=== PATIENT | female | born 1960 | race Caucasian/White ===

== ENCOUNTER 2017-04-10 20:21 | Emergency (ER) | payer OTHER ==
[2017-04-10] MEDS ORDERED: ACETAMINOPHEN 325 MG TABLET (FP) PO ONE (20:33)
--- NOTE | 2017-04-10 20:34 | PDOC ---
Rapid Medical Evaluation Chief Complaint: Blood Pressure Problem Time Seen by Provider: 04/10/17 20:30 Medical Evaluation: 04/10/17 20:30 I have performed a brief in-person evaluation of this patient. The patient presents with a chief complaint of: High Blood Pressure Pertinent physical exam findings: n/a I have ordered the following: cbc, cmp, urinalysis, ekg, cardiac enzymes. The patient will proceed to the ED for further evaluation. No history of hypertension, presents to ED c/o h/a. (10/28) She states she took her bp at local pharmacy and it was high. Triage: 148/100. PmHx: HLD. Denies CP. 04/10/17 20:33 Discharge Disposition - Referrals Referrals: Dasia Bearden MD [Primary Care Provider] - - Patient Instructions - Post Discharge Activity
[2017-04-10 20:55] VITALS: TEMP 98.2; BMI 21.5
[2017-04-10 21:07] LABS: BASOPHIL 0.4 % (0-2.0); EOSINOPHIL 0.7 % (0-4.5); MCH 28.6 pg (25.7-33.7); MCHC 33.9 g/dl (32.0-36.0); MEAN CELL VOLUME 84.5 fl (80-96); MEAN PLT VOLUME 8.3 fl (7.5-11.1); NEUTROPHILS 45.9 % (42.8-82.8); PLATELET COUNT 313 K/MM3 (134-434); RDW 13.6 % (11.6-15.6); WHITE BLOOD COUNT 7.9 K/mm3 (4.0-10.0)
[2017-04-10 21:09] LABS: URINE APPEARANCE CLEAR; URINE BILIRUBIN NEGATIVE (NEGATIVE); URINE BLOOD NEGATIVE (NEGATIVE); URINE COLOR STRAW; URINE GLUCOSE (UA) NEGATIVE (NEGATIVE); URINE KETONE NEGATIVE (NEGATIVE); URINE NITRITE NEGATIVE (NEGATIVE); URINE PROTEIN NEGATIVE (NEGATIVE); URINE UROBILINOGEN NEGATIVE mg/dL (0.2-1.0)
[2017-04-10 21:20] LABS: INR 0.96 (0.82-1.09); PROTHROMBIN TIME (PATIENT) 10.8 SEC (9.98-11.88)
[2017-04-10 21:23] LABS: ACTIVATED PTT 33.2 SECONDS (26.9-34.4)
[2017-04-10 21:37] LABS: ALBUMIN 4.1 g/dl (3.4-5.0); ANION GAP 6 (8-16); CALCIUM 8.9 mg/dL (8.5-10.1); CO2 32 mmol/L (21-32); CREATININE 0.8 mg/dL (0.55-1.02); GLUCOSE,RANDOM 96 mg/dL (74-106); SGOT/AST 17 U/L (15-37); SGPT/ALT 26 U/L (12-78)
[2017-04-10 21:41] LABS: ALK PHOS 110 U/L (45-117); BILIRUBIN,TOTAL 0.4 mg/dL (0.2-1.0); CPK 148 IU/L (26-192); TOT PROT 7.4 g/dl (6.4-8.2); TROPONIN I < 0.02 ng/ml (0.00-0.05)
[2017-04-10] MEDS ORDERED: ACETAMINOPHEN 325 MG TABLET (FP) ONE (21:43)
[2017-04-10] MEDS ORDERED: METOPROLOL TARTRATE 25 MG TABLET (FP) PO ONE (22:20)
[2017-04-10] MEDS ORDERED: METOPROLOL TARTRATE 25 MG TABLET (FP) ONE (22:21)
--- NOTE | 2017-04-10 22:29 | PDOC ---
History of Present Illness - General History Source: Patient, Old Records Exam Limitations: No Limitations - History of Present Illness Initial Comments: 04/10/17 22:37 The patient is a 56 year old danish speaking female, accompanied by , with a past medical history of hypertension who presents to the emergency department with chest discomfort for 2 weeks. The patient states that she followed up with a doctor for her chest discomfort and was advised to avoid salt and monitor her blood pressure. The patient has no other complaints at this time. <Les Bueno - Last Filed: 04/10/17 22:37> - General History Source: Patient <ArjunPollo - Last Filed: 04/11/17 01:34> - General Chief Complaint: Blood Pressure Problem Stated Complaint: BLOOD PRESSURE PROBLEM Time Seen by Provider: 04/10/17 20:28 Past History <Les Bueno - Last Filed: 04/10/17 22:37> - Past Medical History COPD: No Hypercholesterolemia: Yes - Suicide/Smoking/Psychosocial Hx Smoking History: Never smoked <Pollo Díaz - Last Filed: 04/11/17 01:34> - Past Medical History Allergies/Adverse Reactions: Allergies Allergy/AdvReac Type Severity Reaction Status Date / Time aspirin Allergy Verified 04/10/17 20:33 Home Medications: Ambulatory Orders Simvastatin 75 mg PO HS 04/10/17 Enalapril Maleate [Vasotec -] 5 mg PO BID #10 tablet 04/11/17 Review of Systems - Review of Systems Able to Perform ROS?: Yes Comments:: 04/10/17 22:38 CONSTITUTIONAL: Absent: fever, no chills, no fatigue EYES: Absent: visual changes ENT: Absent: ear pain, no sore throat CARDIOVASCULAR: (+) Chest discomfort Absent: chest pain RESPIRATORY: Absent: cough, no SOB GI: Absent: abdominal pain, no nausea, no vomiting, no constipation, no diarrhea GENITOURINARY: Absent: dysuria, no frequency, no hematuria MUSCULOSKELETAL: Absent: back pain, no arthralgia, no myalgia SKIN: Absent: rash <Les Bueno - Last Filed: 04/10/17 22:37> *Physical Exam - Vital Signs Last Vital Signs Temp Pulse Resp BP Pulse Ox 98.2 F 71 18 138/102 99 04/10/17 20:29 04/10/17 22:22 04/10/17 22:22 04/10/17 22:22 04/10/17 22:22 - Physical Exam Comments: 04/10/17 22:38 GENERAL: Well-appearing, well-nourished. No apparent distress. HEENT: Normocephalic, atraumatic. PERRL, EOM intact. CARDIOVASCULAR: Normal S1, S2. Regular rate and rhythm. PULMONARY: Clear to auscultation bilaterally. ABDOMEN: Soft, non-distended, non-tender. EXTREMITIES: Normal ROM in all four extremities. No gross deformities. SKIN: Warm, dry. No rash NEUROLOGICAL: No focal neurological deficits. <Les Bueno - Last Filed: 04/10/17 22:37> - Vital Signs Last Vital Signs Temp Pulse Resp BP Pulse Ox 98.2 F 71 18 138/102 99 04/10/17 20:29 04/10/17 22:22 04/10/17 22:22 04/10/17 22:22 04/10/17 22:22 <Pollo Díaz - Last Filed: 04/11/17 01:34> ED Treatment Course - LABORATORY CBC & Chemistry Diagram: 04/10/17 20:30 04/10/17 20:30 - ADDITIONAL ORDERS Additional order review: Laboratory Results 04/10/17 04/10/17 04/10/17 20:40 20:30 20:30 PT with INR 10.80 INR 0.96 PTT (Actin FS) 33.2 Sodium 142 Potassium 4.2 Chloride 104 Carbon Dioxide 32 Anion Gap 6 L BUN 13 Creatinine 0.8 Creat Clearance w eGFR > 60 Random Glucose 96 Calcium 8.9 Total Bilirubin 0.4 AST 17 ALT 26 Alkaline Phosphatase 110 Creatine Kinase 148 Troponin I < 0.02 Total Protein 7.4 Albumin 4.1 Urine Color Straw Urine Appearance Clear Urine pH 7.0 Ur Specific [place] 1.006 Urine Protein Negative Urine Glucose (UA) Negative Urine Ketones Negative Urine Blood Negative Urine Nitrite Negative Urine Bilirubin Negative Urine Urobilinogen Negative 04/10/17 20:30 RBC 4.82 MCV 84.5 MCHC 33.9 RDW 13.6 MPV 8.3 Neutrophils % 45.9 Lymphocytes % 47.3 H Monocytes % 5.7 Eosinophils % 0.7 Basophils % 0.4 - Medications Given in the ED: ED Medications Discontinued Medications Generic Name Dose Route Start Last Admin Trade Name Jaswant PRN Reason Stop Dose Admin Acetaminophen 650 mg 04/10/17 20:33 04/10/17 21:48 Tylenol - PO 04/10/17 20:34 650 mg ONCE ONE Administration Metoprolol Tartrate 25 mg 04/10/17 22:20 04/10/17 22:25 Lopressor - PO 04/10/17 22:21 25 mg ONCE ONE Administration <Les Bueno - Last Filed: 04/10/17 22:37> - LABORATORY CBC & Chemistry Diagram: 04/10/17 20:30 04/10/17 20:30 - ADDITIONAL ORDERS Additional order review: Laboratory Results 04/10/17 04/10/17 04/10/17 20:40 20:30 20:30 PT with INR 10.80 INR 0.96 PTT (Actin FS) 33.2 Sodium 142 Potassium 4.2 Chloride 104 Carbon Dioxide 32 Anion Gap 6 L BUN 13 Creatinine 0.8 Creat Clearance w eGFR > 60 Random Glucose 96 Calcium 8.9 Total Bilirubin 0.4 AST 17 ALT 26 Alkaline Phosphatase 110 Creatine Kinase 148 Troponin I < 0.02 Total Protein 7.4 Albumin 4.1 Urine Color Straw Urine Appearance Clear Urine pH 7.0 Ur Specific [place] 1.006 Urine Protein Negative Urine Glucose (UA) Negative Urine Ketones Negative Urine Blood Negative Urine Nitrite Negative Urine Bilirubin Negative Urine Urobilinogen Negative 04/10/17 20:30 RBC 4.82 MCV 84.5 MCHC 33.9 RDW 13.6 MPV 8.3 Neutrophils % 45.9 Lymphocytes % 47.3 H Monocytes % 5.7 Eosinophils % 0.7 Basophils % 0.4 - RADIOLOGY Radiology Studies Ordered: Category Date Time Status HEAD CT WITHOUT CONTRAST [CT] Stat CT Scan 04/10/17 21:50 Completed - Medications Given in the ED: ED Medications Discontinued Medications Generic Name Dose Route Start Last Admin Trade Name Jaswant PRN Reason Stop Dose Admin Acetaminophen 650 mg 04/10/17 20:33 04/10/17 21:48 Tylenol - PO 04/10/17 20:34 650 mg ONCE ONE Administration Metoprolol Tartrate 25 mg 04/10/17 22:20 04/10/17 22:25 Lopressor - PO 04/10/17 22:21 25 mg ONCE ONE Administration <Pollo Díaz - Last Filed: 04/11/17 01:34> Medical Decision Making - Medical Decision Making 04/10/17 22:55 Dr. Díaz: The scribe's documentation has been prepared under my direction and personally reviewed by me in its entirery. I confirm that the note above accurately reflects all work, treatment, procedures, and medical decision making performed by me. 04/11/17 01:27 Pt BP is improving, although still high. Pt headache has improved. Pt advised to go to PCP today or start taking prescribed medication if she can't see pcp. <Pollo Díaz - Last Filed: 04/11/17 01:34> *DC/Admit/Observation/Transfer - Attestations Scribe Attestion: 04/10/17 22:38 Documentation prepared by Les Bueno, acting as medical professionals for Pollo Díaz DO. <Les Bueno - Last Filed: 04/10/17 22:37> - Discharge Dispostion Admit: No <Pollo Díaz - Last Filed: 04/11/17 01:34> Diagnosis at time of Disposition: Hypertension Qualifiers: Hypertension type: unspecified Qualified Code(s): I10 - Essential (primary) hypertension - Discharge Dispostion Disposition: HOME Condition at time of disposition: Stable - Referrals Referrals: Dasia Bearden MD [Primary Care Provider] - - Patient Instructions Printed Discharge Instructions: DI for High Blood Pressure, How to Monitor Your Blood Pressure at Home Additional Instructions: Please see your doctor today immediately. If you can't, take prescribed medication until after the holiday Print Language: OCCITAN - Post Discharge Activity
[2017-04-10] MEDS ORDERED: ENALAPRIL MALEATE 5 MG TABLET (FP) PO ONE (23:54)
[2017-04-11] MEDS ORDERED: ENALAPRIL MALEATE 5 MG TABLET (FP) ONE
[2017-04-11 01:15] VITALS: BP 161/95; PULSE 89
[2017-04-11 09:04] LABS: URINE LEUK ESTERASE 1+ (NEGATIVE)
[2017-04-11 10:26] LABS: URINE RBC 0-2 /hpf (0-3)
[2017-04-11 10:27] LABS: URINE BACTERIA MODERATE /hpf (NEGATIVE)
--- NOTE | 2017-04-11 12:10 | EKG ---
Test Reason : Blood Pressure : / mmHG Vent. Rate : 071 BPM Atrial Rate : 071 BPM P-R Int : 210 ms QRS Dur : 092 ms QT Int : 408 ms P-R-T Axes : 057 044 060 degrees QTc Int : 443 ms SINUS RHYTHM WITH 1ST DEGREE A-V BLOCK OTHERWISE NORMAL ECG NO PREVIOUS ECGS AVAILABLE Confirmed by RIZWAN AGUILAR MD ([id number]) on 04/11/2017 12:09:44 PM Referred By: Confirmed By:RIZWAN AGUILAR MD
== END 2017-04-11 01:41 | disposition home or self-care (01) ==
LOC: JER 20:21
DX: I10 Essential (primary) hypertension (principal)
CPT/HCPCS: 36415; 70450-TC; 80053; 81003; 81015; 82550; 84484; 85025; 85610; 85730; 93005; 93010; 99281-25

== ENCOUNTER 2018-09-20 10:40 | Emergency (ER) | payer OTHER ==
[2018-09-20 10:45] VITALS: BP 149/70; PULSE 82; TEMP 98.6; BMI 22.6
--- NOTE | 2018-09-20 11:10 | PDOC ---
History of Present Illness - General Chief Complaint: Cold Symptoms Stated Complaint: COUGH Time Seen by Provider: 09/20/18 11:10 History Source: Patient Exam Limitations: No Limitations - History of Present Illness Initial Comments: 09/20/18 11:20 Chief complaint: Cold symptoms Patient 58-year-old female with history of high blood pressure, not on meds is complaining of 3 days of nasal congestion and cough. No fever, no shortness of breath and appears well. His been taking TheraFlu. She is concerned regarding a cough. GENERAL/CONSTITUTIONAL: No fever, weakness. dizziness HEAD, EYES, EARS, NOSE AND THROAT: No change in vision. No ear pain or discharge. No sore throat.+ Nasal congestion CARDIOVASCULAR: No chest pain RESPIRATORY: No shortness of breath + cough GASTROINTESTINAL: No pain, nausea, vomiting, diarrhea or constipation GENITOURINARY: No dysuria MUSCULOSKELETAL: No neck or back pain SKIN: No rash NEUROLOGIC: No headache, vertigo, loss of consciousness, or loss of sensation. GENERAL: The patient is awake, alert, and fully oriented, in no acute distress. HEAD: Normal with no signs of trauma. EYES: Pupils equal, round and reactive to light, sclera anicteric, conjunctiva clear. ENT: pharynx: no erythema, no exudate, uvula midline NECK: supple CHEST: clear, nontender, rr ABD: soft, nontender EXTREMITIES: Normal range of motion, no edema. NEUROLOGICAL: Normal speech, normal gait. SKIN: Warm, Dry Past History - Past Medical History Allergies/Adverse Reactions: Allergies Allergy/AdvReac Type Severity Reaction Status Date / Time aspirin Allergy Verified 09/20/18 10:45 Home Medications: Ambulatory Orders Simvastatin 75 mg PO HS 04/10/17 Enalapril Maleate [Vasotec -] 5 mg PO BID #10 tablet 04/11/17 COPD: No Hypercholesterolemia: Yes - Suicide/Smoking/Psychosocial Hx Smoking History: Never smoked Have you smoked in the past 12 months: No Information on smoking cessation initiated: No Hx Alcohol Use: No Drug/Substance Use Hx: No *Physical Exam - Vital Signs Last Vital Signs Temp Pulse Resp BP Pulse Ox 98.6 F 82 16 149/70 100 09/20/18 10:41 09/20/18 10:41 09/20/18 10:41 09/20/18 10:41 09/20/18 10:41 Medical Decision Making - Medical Decision Making 09/20/18 11:21 58-year-old female with history of elevated blood pressure, blood pressure is controlled today with URI symptoms for 3 days, well-appearing, no fever or visible cough. Exam is normal except for some reddening to the nasal openings and nasal congestion. Discussed supportive care with patient, no further exam or testing is indicated. *DC/Admit/Observation/Transfer Diagnosis at time of Disposition: Upper respiratory infection Qualifiers: URI type: unspecified URI Qualified Code(s): J06.9 - Acute upper respiratory infection, unspecified - Discharge Dispostion Disposition: HOME Condition at time of disposition: Stable - Referrals - Patient Instructions Printed Discharge Instructions: DI for Viral Upper Respiratory Infection -- Adult Additional Instructions: Drink 2-3 L of water daily Take Tylenol 650 mg every 4 hours for fever and pain Return to the nearest ER if short of breath, unable to swallow or feeling sicker Followup with your doctor in one to 2 days Be careful what medications you take for your cold as many of them will raise your blood pressure Print Language: BURMESE - Post Discharge Activity
== END 2018-09-20 12:00 | disposition home or self-care (01) ==
LOC: JERFT 10:40
DX: J06.9 Acute upper respiratory infection, unspecified (principal); I10 Essential (primary) hypertension; E78.00 Pure hypercholesterolemia, unspecified
CPT/HCPCS: 99281-25